=== PATIENT | female | born 1965 | race Caucasian/White ===

== ENCOUNTER 2018-04-23 09:41 | Outpatient (CLI) | payer OTHER | END 2018-04-23 21:51 | disposition home or self-care (01) | LOC: SMA 09:41 | PROVIDERS: ATTEND Family Medicine | DX: Z12.31 Encounter for screening mammogram for malignant neoplasm of breast (principal); Z11.1 Encounter for screening for respiratory tuberculosis; S16.1XXA Strain of muscle, fascia and tendon at neck level, initial encounter; M47.894 Other spondylosis, thoracic region; M41.84 Other forms of scoliosis, thoracic region; X58.XXXA Exposure to other specified factors, initial encounter; Y93.89 Activity, other specified; Y92.89 Other specified places as the place of occurrence of the external cause; Y99.8 Other external cause status | CPT/HCPCS: 72050-TC; 72072-TC; 77067 ==

== ENCOUNTER 2019-07-24 10:54 | Outpatient (CLI) | payer OTHER | END 2019-07-25 20:13 | disposition home or self-care (01) | LOC: SMA 10:54 | PROVIDERS: ATTEND Family Medicine | DX: Z12.31 Encounter for screening mammogram for malignant neoplasm of breast (principal) | CPT/HCPCS: 77067 ==

== ENCOUNTER 2021-04-05 08:39 | Outpatient (CLI) | payer OTHER | END 2021-04-05 21:27 | disposition home or self-care (01) | LOC: SMA 08:39 | PROVIDERS: ATTEND Family Medicine | DX: Z12.31 Encounter for screening mammogram for malignant neoplasm of breast (principal) | CPT/HCPCS: 77067 ==